=== PATIENT | male | born 1940 | race Caucasian/White ===

== ENCOUNTER 2025-04-24 18:41 | Inpatient (IN) | payer MEDICARE, OTHER, SELFPAY ==
[2025-04-24 12:59] VITALS: BP 166/73
--- NOTE | 2025-04-24 15:20 | ED.GENMED ---
History of Present Illness
General
Chief Complaint: Back Pain
Time Seen by Provider: 04/24/25 15:20
History of Present Illness
History of Present Illness:
FOCUSED PAST MEDICAL HISTORY
- Colon cancer
REVIEW OF OLD RECORDS
- No old records available for review in [facility]
Note:
CHIEF COMPLAINT(S)
Severe lower back pain.
HISTORY OF PRESENT ILLNESS
The patient is an 85-year-old male who experienced sudden onset of significant lower back pain this morning while getting dressed. He described the pain as sudden and sharp, occurring as he was putting on his pants. The patient reported having a
history of bursitis in the right hip, for which he received a cortisone injection a few years ago. He noted that the pain had been manageable over the past month, but it became suddenly severe today. The pain is predominantly located in the lower
back and worsens with movement. There is no abdominal pain reported. The patient also mentioned a history of colon cancer but stated that previous imaging, including X-rays taken today, showed degenerative changes without compression or signs of
injury. He mentioned the pain worsens with movement and he needs assistance sitting.
PAST MEDICAL HISTORY
- History of bursitis in the right hip.
- History of colon cancer with past imaging showing no metastatic lesions.
PHYSICAL EXAM
General: Alert, no acute distress noted. But appears somewhat uncomfortable when he attempts to move
Skin: Warm, dry.
Head: Normocephalic, atraumatic.
Neck: Supple, trachea midline.
Eye, Ears, Mouth, and Throat: Oral mucosa moist.
Cardiovascular: Normal peripheral perfusion, no edema.
Respiratory: Respirations are non-labored.
Gastrointestinal: Abdomen nondistended, no abdominal tenderness but exam very limited given body habitus
Back: Decreased active range of motion of the thoracolumbar spine, mild right CVA tenderness
Musculoskeletal: Normal range of motion and strength; hip rotation does not exacerbate pain.
Neurological: Alert and oriented to person, place, time, and situation, no focal neurological deficits observed.
Psychiatric: Cooperative, appropriate mood and affect.
PROBLEM LIST
Acute:
- Severe lower back pain
PLAN
Proceed with a computed tomography (CT) scan of the abdomen to rule out other potential etiologies such as issues with the aorta or kidney stones. Administered Percocet for pain management.
DIFFERENTIAL DIAGNOSIS
The Differential Diagnosis includes, in no particular order and is not limited to:
- Musculoskeletal strain or spasm
- Spinal degenerative changes
- Kidney stones
- Aortic aneurysm
- Metastatic disease
- Herniated disc
- Vertebral fracture
- Pyelonephritis
- Bursitis recurrence
- Abdominal aortic aneurysm
RADIOLOGY
- Lumbar x-ray shows degenerative changes
- I personally viewed CT imaging and I agree with radiologist interpretation that there is no acute abnormality
- I personally do not see any abnormality to the aorta on this noncontrast study
LABS
- White count and hemoglobin levels are both normal
SUMMARY OF ENCOUNTER
The patient, an 85-year-old male with a history of lower back pain, was seen in the emergency department for acute severe lower back pain that started this morning. The pain was sudden and sharp and occurred while the patient was getting dressed. A
CT scan of the abdomen was performed to assess potential causes, such as issues with the aorta or kidney stones. The evaluation did not reveal any acute pathology; it showed only degenerative changes consistent with aging. Pain management was
initiated with oxycodone and acetaminophen (Percocet), which was administered approximately an hour prior to this note. The patient lives alone and expressed concern about returning home due to managing daily activities in the presence of pain.
DISPOSITION
Admission to a rehabilitation or nursing facility is being considered due to the patients inability to safely return to his home and manage on his own.
ASSESSMENT
The most likely cause of the patients pain is musculoskeletal strain or spasm, given the acute onset and lack of findings on the CT scan suggesting other acute processes.
PLAN
Evaluate potential options for a rehabilitation facility or nursing care placement, considering the patient�s living situation and need for assistance due to acute pain and limited mobility. Continue with pain management and consider alternatives or
adjuncts as needed for pain control.
INDEPENDENT REVIEW OF LABS AND INTERPRETATION OF TESTS
My independent interpretation of the CT scan shows degenerative changes typical for the patients age but no acute findings to explain the severe pain such as issues with the aorta or kidney stones.
MEDICATION RECONCILIATION
- Administered oxycodone and acetaminophen (Percocet).
MEDICAL DECISION MAKING
- Number and Complexity of Problems Addressed: Chronic conditions affecting care, including a history of bursitis and colon cancer. Differential Diagnosis includes musculoskeletal strain or spasm, spinal degenerative changes, kidney stones,
herniated disc, bursitis recurrence, abdominal aortic aneurysm.
- Data:
Category 1: My independent interpretation of the CT scan revealed only degenerative changes without acute findings.
Category 2: None applicable.
Category 3: None applicable.
-Risk:
Prescription drug management was initiated with oxycodone and acetaminophen (Percocet) for pain management. Consideration of Admission/Observation: Escalation of care, including admission, was considered given the complexity and risk of the patients
presenting complaint, exam findings, and underlying comorbidities. The patient is considered for admission to a rehabilitation or nursing facility due to the inability to safely manage at home.
DIAGNOSIS
- Acute musculoskeletal back pain (ICD-10: M54.5)
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
UPDATE
- Suspect more of a musculoskeletal etiology however given the limited abdominal exam we will obtain CT imaging as well
- Gave Percocet for pain
- Patient reports ongoing significant pain with any attempted motion of the thoracolumbar spine
- Both patient and daughter expressed concerns about him going home and they do not feel it would be safe for him to be going back home by himself
- Added lab work
- Give IV narcotic analgesia as well
- Given patient's advanced age, held off on Flexeril
- I have also added a Lidoderm patch
Phy Exam
Physical Exam
Physical Exam:
See HPI
Course
Orders/Labs/Results
Orders:
Orders
04/24/25 13:00
Lumbar Spine Complete, 4 View [CR Lumbar Spine Comp Min 4 Vw*] Urgent
Comment:
Reason For Exam: back pain
04/24/25 Dinner
Cholesterol Lowering
At Your Request: Limited Participation
Does patient need a safe tray?: No
Cholesterol Lowering: Sodium, 2 Gram
04/24/25 15:27
CT Abd/pel Without Iv Or Oral Urgent
Comment:
Reason For Exam: R flank / back pain
Oxycodone/Acetaminophen [Percocet 5/325] 1 tablet PO NOW STA
04/24/25 17:17
Basic Metabolic Panel Urgent
Complete Blood Count/With Diff Urgent
04/24/25 17:25
HYDROmorphone [Dilaudid] 0.5 mg IV NOW STA
Ondansetron Injectable [Zofran] 4 mg IV NOW STA
04/24/25 17:26
Lidocaine [Lidocaine 4% Patch] 1 patch TOPICAL NOW STA
Apply Lidocaine patch(s) to:: right flank
04/24/25 17:45
Admit/Transfer Patient As Directed
Co-Sign Provider:
Level of Care: Inpatient admission
Assign to:: Medical/Surgical
Physician / Group: hospitalist
Diagnosis: lumbar back pain
Reason for Hospitalization: unknown cause of lumbar back pain
Expected length of stay greater than two midnights?: Yes
ELOS- Estimated Length of Stay in days: 3
I certify the patient meets the requirements for IP care: Yes
PRN Pain Medication Management As Directed
May give lesser potent ordered pain med per pt: Yes
preference::
Protocol:: Medication orders for pain may be administered in a
manner that supports deferring to patient preference
when the pt is:
- Requesting an ordered lesser potent pain medication.
Least to most potent pain medications are defined
as: acetaminophen < NSAID < tramadol < opioids
(morphine, oxycodone, hydromorphone).
- Requesting a lesser dose of the same medication IF
ORDERED.
- Requesting a less intrusive route of administration
if both routes are prescribed by the provider (PO <
IV).
04/24/25 17:46
Code Status As Directed
Resuscitation Status: Do not resuscitate
Reached after discussion with pt or family/Healthcare POA: Yes
DNR Bracelet Application ONCE
04/24/25 18:00
Atorvastatin [Lipitor] 40 mg PO QPM
04/24/25 19:56
Bisacodyl [Dulcolax] 10 mg RECTAL [id number] PRN
Docusate W/Senna [Senokot-S] 1 tablet PO BIDPRN PRN
HYDROmorphone [Dilaudid] 0.5 mg IV Q4HPRN PRN
Polyethylene Glycol Powder [Miralax] 17 grams PO DAILYPRN PRN
04/24/25 19:56
Lumbar W/O & With Contrast MR [MR Lumbar W/o & With Contrast] Routine
Comment:
Reason For Exam: back pain, hx cancer
Recent pill cam endoscopy?: No
Activity As Directed
Activity Level: As Tolerated
Vital Signs As Directed
Frequency: Per unit guidelines
Occupational Therapy Consult [Ot Eval And Treat] Routine
Pt Eval And Treat Routine
Activity Level: As Tolerated
DX Deep Vein Thrombosis Video Routine
04/24/25 20:00
Acetaminophen [Tylenol] 650 mg PO Q4HWA
Heparin 5,000 units SC Q12
04/25/25 06:00
Basic Metabolic Panel IN AM
Complete Blood Count/No Diff IN AM
04/25/25 08:00
Aspirin Chewable [Low Strength Aspirin] 81 mg PO DAILY
Cetirizine HCl [Zyrtec] 10 mg PO DAILY
Cetirizine HCl [Zyrtec] 10 mg PO DAILY
Cholecalciferol (Vitamin D3) [VITAMIN D3 (cholecalciferol)] 25 mcg PO DAILY
Cholecalciferol (Vitamin D3) [VITAMIN D3 (cholecalciferol)] 50 mcg PO DAILY
aspirin 81 mg PO DAILY
rosuvastatin 40 mg PO DAILY
04/26/25 06:00
Basic Metabolic Panel IN AM
Complete Blood Count/No Diff IN AM
04/27/25 06:00
Basic Metabolic Panel IN AM
Complete Blood Count/No Diff IN AM
04/28/25 06:00
Basic Metabolic Panel IN AM
Complete Blood Count/No Diff IN AM
04/29/25 06:00
Basic Metabolic Panel IN AM
Complete Blood Count/No Diff IN AM
04/30/25 06:00
Basic Metabolic Panel IN AM
Abnormal Lab Results
04/24/25
17:17
RBC 4.04 L 10^6/uL
(4.70-6.10)
MCV 102.2 H fL
(80.0-94.0)
MCH 34.7 H pg
(27.0-31.0)
MPV 11.1 H fL
(7.4-10.4)
Abs Immat Gran (auto) 0.1 H 10^3/uL
(0-0.05)
Absolute Lymphs (auto) 0.8 L 10^3/uL
(1.2-3.4)
Absolute Monos (auto) 1.1 H 10^3/uL
(0.1-0.6)
Immature Gran % 1.5 H %
(0-0.5)
Lymphocytes % 12.1 L %
(20.5-51.1)
Monocytes % 16.8 H %
(1.7-9.3)
BUN 23 H mg/dl
(9-20)
Glucose 120 H mg/dl
(70-99)
04/24/25 17:17
04/24/25 17:17
Vital Signs
Initial and Last Documented VS:
Initial Vital Signs
Temp Pulse Resp Pulse Ox
36.8 C 69 16 98
04/24/25 12:57 04/24/25 12:57 04/24/25 12:57 04/24/25 12:57
Last Documented Vital Signs
Temp Pulse Resp BP Pulse Ox
37.0 C 70 18 143/80 95
04/24/25 23:03 04/24/25 23:03 04/24/25 23:03 04/24/25 23:03 04/24/25 23:03
*Pulse Oximetry
SaO2: 98
Oxygen Mode of Delivery: Room air
Patient hypoxic: no
*Critical Care Note
Total Time (30-74mins, 75-104mins- exclusive of procedures): Not Applicable
ED Attending Note
-
Portions of this chart may have been created with voice recognition software.� Occasional wrong word or��sound alike� substitutions may have occurred due to the inherent limitations of voice recognition software.
Discharge Plan
Departure
Patient Disposition: Admit
Date of Disposition: 04/24/25
Time of Disposition: 17:03
Presentation/result/management discussed w/ accepting MD/DO: Hospitalist
Patient with high blood pressure during this ER visit?: Yes
Discharge Problem:
Intractable low back pain
Interventions
Interventions:
*General Assessment Last Done: 04/24/25 12:57
*Neglect/Abuse Screening Last Done: 04/24/25 12:57
*Risk Screen - Suicide (C-SSRS) Last Done: 04/24/25 12:57
*Nursing Disposition Last Done: 04/24/25 20:07
ED-Musculoskeletal Assessment Last Done: 12/28/25 15:15
Discharge Date and Time
Discharge Date/Time: 04/24/25 20:07
[2025-04-24] MEDS: PERCOCET 5/325 1 TABLET PO (15:40)
--- NOTE | 2025-04-24 17:16 | W.PN.UPDATE ---
Update Note
Progress Note Update
85-year-old male with history of colon cancer s/p resection and chemotherapy presenting to the ED today with the complaint of back pain. Back pain started this morning acutely while he was getting dressed, described as sudden and sharp. States he
has history of bursitis in the right hip which he previously received cortisone injections for. Pain has been manageable over the past month but recently worsened. Most prominent pain in the lower back that is worse with movement. States that he
had previous imaging related to his colon cancer without signs of metastases. AFVSS on arrival. X-ray of the lumbar spine demonstrated degenerative changes of L5-S1. CT A/P without contrast without acute findings. BMP and CBC with differential
pending. Was started on Percocet in the ED without relief.
AO x 4, appears in pain. Benign cardiopulmonary and abdominal exam. Euvolemic. Nontender to spine to palpation. Passive SLR positive. Skin warm and dry. No FND, strength intact though limited by discomfort
#Intractable back pain. Differentials include radiculitis versus soft tissue etiology versus possible metastases from previous colon cancer. Will transition to standing Tylenol 1 g every 6 hours with PRN IV Dilaudid for breakthrough pain. Order
MRI L-spine with and without contrast. PT/OT consult. Consider oral steroid versus epidural steroid injection
Diet -- Regular
DVT -- SQ Heparin
Code -- DNR
I will be admitting Andrés Wallace to [facility]. He is at high risk for worsening morbidity due to intractable back pain and will require readjustment of his analgesic regimen and further imaging to identify etiology. I have discussed this case
with the ED attending. I have reviewed the case with the resident and agree with all documentation unless otherwise specified.
See resident H&P for more detail once available
[2025-04-24 17:35] LABS: Hematocrit 41.3 % (39.0-52.0); Hemoglobin 14.0 g/dL (13.0-18.0); Mean Corp Hgb Conc. 33.9 g/dL (33.0-37.0); Mean Corpuscular Volume 102.2 fL (80.0-94.0); Nucleated Red Blood Cells % 0 % (-); Platelet Count 143 10^3/uL (130-400); Red Cell Dist. Width 13.9 % (11.5-14.5)
--- NOTE | 2025-04-24 17:50 | HPS.HSE ---
Family Physician
-
Family Physician: Chyna Del Castillo
Chief Complaint
-
lower back pain
History of Present Illness
85yoM PMH HLD, RUE neuropathy, colon cx, SCC and BCC, factor V leiden, TANYA, macular degeneration, allergic rhinitis presenting with acute onset of lower back pain.
Pt reports sitting on his ed this morning pulling his pants on when he all of the sudden had R sided back pain. Denies movement in a specific way caused the pain initially. He reports being able to lie down but having to call family and eventually
911 for help. He describes the pain as continued sharp, shooting pain that does not radiate. Pt reports pain with certain arm or back movements, exacerbated by any abdominal muscle tightening.
Hx hip bursitis s/p cortisone shots and RUE radicular symptoms of shooting down hand due to shoulder injury. Hx paresthesias from chemotherapy 10 years ago with no acute worsening or change. Denies numbness or tingling in feet, bowel or bladder
incontinence, fever, chills, nausea, vomiting, diarrhea, constipation, saddle anesthesia. No hx of back injury. Remote hx of what the pt reports as stage IV colon cancer, local lymph nodes s/p resection and chemotherapy 2014. Last seen oncologist at
[facility] 1mo, discharged from care as he has been cancer free for 10yrs. Daughter reports hx of leukopenia at baseline even without chemotherapy. RUE neuropahty and paresthesias ever since chemotherapy with temperature intolerance of hands only.
Medical History
Past Medical History
Past Medical History: Reports Cancer (colon, basal cell, squamous cell of skin) and Hypercholesterolemia
Additional Past Medical History:
Factor 5 leiden, arthritis, TANYA, macular degeneration, allergic rhinitis
Past Surgical History: Reports Appendectomy, Cholecystectomy, Tonsilectomy and Other
Additional Past Surgical History:
Mohs 1 wk ago on head
Catarct
Social History
Alcohol: Occasional
Personal:
Living: Alone
Employment: Retired
Family History
Family History: Other (COPD, heart disease, dementia)
Allergies / Home Medications
Allergies reflects when Allergies were last updated in [employer].
Home Medications with original date entered in [employer]
Allergy/Medication List:
Vit D3 50mcg Daily
Aspirin 81mg Daily
Cetirizine 10mg
FLuticasone 50mcg
Eye vitamins
Crestor 20mg
Review of Systems
-
History Source: Patient
A 12 point ROS was completed and negative except as noted: Yes
Physical Exam
Vital Signs
Vital Signs
Temp Pulse Resp BP Pulse Ox
98.3 F 69 16 166/73 98
04/24/25 12:57 04/24/25 12:57 04/24/25 12:57 04/24/25 12:59 04/24/25 15:22
Physical Exam
General: Well Developed, Well Nourished and No Apparent Distress
HEENT: NormoCephalic, Anicteric, Moist mucous membranes and Atraumatic (2 stitches on head from recent Mohs)
Respiratory: Clear and Non Labored Respirations
Cardiac: S1/S2 and Regular Rhythm
GI: Soft, Non Tender and Distended (at pt baseline)
Musculoskeletal: No Edema and Other (strength equal both sides, plantar flexion RLE limited by pain, straight leg test negative, no tenderness down palpation of spine)
Skin: Warm and Dry
Neuro: AO x 3, No Motor Deficits, Nonfocal/grossly intact, No Sensory Deficits and DTR's Intact & Symmetrical
Psych: Calm
Laboratory Results
-
04/24/25 17:17
Impression/Plan
-
IMPRESSION:
85yoM PMH HLD, RUE neuropathy, colon cx, SCC and BCC, factor V leiden, TANYA, macular degeneration, allergic rhinitis presenting with acute onset of lower back pain.
AFVSS. Remote hx of colon cx. No signs of cauda equina or cord compression without saddle anesthesia, incontinence, radiating pain, tenderness to palpation. Muscle strain vs herniated disc vs met seems unlikely but cannot r/o. CT demonstrates no
acute findings. Plan for MRI. Continue home medications. Tylenol standing with PRN dilaudid as needed. Pending MRI results, can consider steroid injection or PO course. PT/OT.
CT: No renal or ureteral calculus. No bladder calculus. No obstructive uropathy. 1 cm right renal cyst.
Fatty infiltration of liver. No bowel obstruction. The appendix is not identified with certainty. No secondary signs of appendicitis. No acute inflammatory changes in the abdomen or pelvis. Small likely benign dermal lesion to the right of midline
in the anterior pelvic region. Clinical correlation recommended. Lumbar degenerative changes, as described. No compression deformity.
Lumbar x ray: Degenerative changes, as described. No compression deformity.
#lower back pain
- MRI w w/o lumbar spine
- PT/OT
- Tylenol with PRN dilaudid. Bowel regimen PRN
#HLD
#allergic rhinitis
#factor V Leiden
- continue home medications
#remote hx of colon cx
- stable
DVT prophylaxis: SC heparin
Diet: cholesterol lowering
Code: DNR
[2025-04-24] MEDS: DILAUDID 0.5 MG IV (17:55)
[2025-04-24 17:56] LABS: Blood Urea Nitrogen 23 mg/dl (9-20); Calcium 9.6 mg/dl (8.4-10.2); Carbon Dioxide 25 mmol/L (22-30); Chloride 106 mmol/L (98-107); Glucose 120 mg/dl (70-99); Potassium 4.7 mmol/L (3.5-5.1); Sodium 138 mmol/L (135-145); eGFR > 60.00
[2025-04-24] MEDS: LIDOCAINE 4% PATCH 1 PATCH TOPICAL (17:56)
[2025-04-24] MEDS: ZOFRAN 4 MG IV (17:56)
[2025-04-24 20:06] VITALS: BP 163/90; BMI 34.1
[2025-04-24] MEDS: HEPARIN 5000 UNITS SC (20:35)
[2025-04-24] MEDS: TYLENOL 650 MG PO (20:35)
[2025-04-24 23:03] VITALS: BP 143/80
--- NOTE | 2025-04-24 23:56 | PTCARENOTE ---
Receive pt from ER. Pt alert oriented X3, calm and pleasant, in no distress. Pt assist X1 from the stretcher in the room to bed. Pt oriented to the room, call mullins within reach. Pt states that his pain is manageable (2/10). VSS (T=99.2, HR=76,
RR=20, NH=174/90, SpO2=97% on RA). Pt admits to 4 or more drinks per day. DOOR HANGER made aware. Pt is on MSAS for alcohol withdrawal symptoms. Will continue to monitor the pt.
[2025-04-25] MEDS: TYLENOL 650 MG PO ×5 (00:12→19:47)
[2025-04-25] MEDS: TYLENOL PO ×2 (05:28→23:07)
--- NOTE | 2025-04-25 07:28 | W.PN.HOSP.TC ---
Addendum entered and electronically signed by Yong Huddleston MD 04/25/25 15:29:
I personally reviewed and evaluated this patient with the resident. I agree with above unless if otherwise stated below.
I personally reviewed labs and imaging leadership development consultant notes case management note
Sitting in bedside chair. Was able to work with physical therapy. They did recommend home with caregivers along with a walker. Prescription placed in chart.
Back pain intermittent depending on movements. MRI L-spine pending. If no significant findings will plan to discharge home with outpatient orthopedic follow-up.
Original Note:
Today's Communication/Plan
-
Pending MRI, dc home with walker and home PT
Assessment / Plan
Assessment / Plan
85yoM PMH HLD, RUE neuropathy, colon cx, SCC and BCC, factor V leiden, TANYA, macular degeneration, allergic rhinitis presenting with acute onset of lower back pain.
AFVSS. Remote hx of colon cx. No signs of cauda equina or cord compression without saddle anesthesia, incontinence, radiating pain, tenderness to palpation. Muscle strain vs herniated disc vs met seems unlikely but cannot r/o. CT demonstrates no
acute findings. Plan for MRI. Continue home medications. Tylenol standing with PRN dilaudid as needed. Pending MRI results, can consider steroid injection or PO course. PT/OT.
Today, pt AFVSS. Able to ambulate with PT with walker. Plan for MRI today. Pending results, dc with home PT and walker.
CT: No renal or ureteral calculus. No bladder calculus. No obstructive uropathy. 1 cm right renal cyst.
Fatty infiltration of liver. No bowel obstruction. The appendix is not identified with certainty. No secondary signs of appendicitis. No acute inflammatory changes in the abdomen or pelvis. Small likely benign dermal lesion to the right of midline
in the anterior pelvic region. Clinical correlation recommended. Lumbar degenerative changes, as described. No compression deformity.
Lumbar x ray: Degenerative changes, as described. No compression deformity.
#lower back pain
- MRI w w/o lumbar spine
- PT/OT
- Tylenol with PRN dilaudid. Bowel regimen PRN
#HLD
#allergic rhinitis
#factor V Leiden
- continue home medications
#remote hx of colon cx
- stable
DVT prophylaxis: SC heparin
Diet: cholesterol lowering
Code: DNR
Anticipated Discharge: Today
Subjective/Interval History
-
Date of Service: April 25, 2025
Pt reports intermittent back pain that is worse with only certain movements. He reports being able to move around reasonably with walker when PT was there. Denies saddle anesthesia, incontinence, paresthesias or weakness.
Objective Data
-
Labs:
Laboratory Results
04/25/25
06:00
WBC Pending
Hgb Pending
Hct Pending
Plt Count Pending
Sodium Pending
Potassium Pending
Chloride Pending
Carbon Dioxide Pending
BUN Pending
Creatinine Pending
Glucose Pending
Calcium Pending
Vital Signs:
Vital Signs
Temp Pulse Resp BP Pulse Ox
98.6 F 70 18 143/80 95
04/24/25 23:03 04/24/25 23:03 04/24/25 23:03 04/24/25 23:03 04/24/25 23:03
I&O
04/24/25 04/25/25 04/26/25
06:59 06:59 06:59
Intake Total 480 / 480
Output Total 450 / 450
Balance
Review of Systems
-
History Source: Patient
All other systems: Reviewed and negative
[2025-04-25 07:45] VITALS: BP 140/73
[2025-04-25] MEDS: CRESTOR 40 MG PO (08:07)
[2025-04-25] MEDS: VITAMIN D3 (cholecalciferol) 25 MCG PO (08:07)
[2025-04-25] MEDS: ZYRTEC 10 MG PO (08:07)
[2025-04-25] MEDS: LOW STRENGTH ASPIRIN 81 MG PO (08:07)
[2025-04-25] MEDS: HEPARIN 5000 UNITS SC ×2 (08:07→19:47)
[2025-04-25 09:02] LABS: Hematocrit 37.8 % (39.0-52.0); Hemoglobin 12.8 g/dL (13.0-18.0); Mean Corp Hgb Conc. 33.9 g/dL (33.0-37.0); Mean Corpuscular Volume 102.4 fL (80.0-94.0); Platelet Count 138 10^3/uL (130-400); Red Cell Dist. Width 14.0 % (11.5-14.5)
[2025-04-25 09:22] LABS: Blood Urea Nitrogen 26 mg/dl (9-20); Calcium 9.1 mg/dl (8.4-10.2); Carbon Dioxide 25 mmol/L (22-30); Chloride 105 mmol/L (98-107); Estimated Creatinine Clearance 88 ml/min; Glucose 120 mg/dl (70-99); Potassium 4.5 mmol/L (3.5-5.1); Sodium 138 mmol/L (135-145); eGFR > 60.00
[2025-04-25 11:16] VITALS: BP 151/80; PULSE 64; O2SAT 97
[2025-04-25 11:18] VITALS: BP 151/80; PULSE 64; O2SAT 94
--- NOTE | 2025-04-25 14:42 | CM ---
Patient seen bedside w/ daughter, Reyna and grandson. Initial assessment completed. Patient is a 85yoM PMH HLD, RUE neuropathy, colon cx, SCC and BCC, factor V leiden, TANYA, macular degeneration, allergic rhinitis presenting with acute onset of lower
back pain.
Patient resides alone in an apartment at [facility] in independent living. No steps, elevator access. Patient is independent w/ ambulation, no device required. Independent w/ ADLs and personal care. No SNF hx. Patient has hx w/ PT at [facility].
Address, points of contact and insurance verified
PCP: Chyna Del Castillo
Pharmacy: [facility]
Therapy assessed patient, recommending home PT/OT and RW at discharge. Rx for RW on chart
Discussed potential d/c today w/ patient and Reyna Orellana w/ concerns about patient's lack of improvement and awaiting MRI. Reyna discussing potential skilled rehab need if patient is able to get 3 night inpatient stay. Reyna has concern w/ patient not
being independent and the fact that he resides alone. CM discussed w/ Reyna that therapy isn't recommending skilled rehab and most likely patient will not be in hospital for 3 days as hospitalist discussed potential of d/c today. PA to follow up w/
Reyna to discuss potential d/c today pending back MRI
Plan: Home w/ HH. PT will issue RW
[2025-04-25 15:30] VITALS: BP 138/71
[2025-04-25 23:16] VITALS: BP 147/74
[2025-04-26] MEDS: TYLENOL PO (04:48)
[2025-04-26 07:30] VITALS: BP 145/67
--- NOTE | 2025-04-26 07:38 | W.PN.HOSP.TC ---
Addendum entered and electronically signed by Yong Huddleston MD 04/26/25 16:51:
I personally reviewed and evaluated this patient with the resident. I agree with above unless if otherwise stated below.
I personally reviewed labs and imaging process consultant notes case management note
Lumbar MRI demonstrated severe spinal stenosis. Discussed case with neurosurgery. Outpatient follow-up.
PT recommended home health.
Will discharge home with 3 days worth of oxycodone.
Original Note:
Today's Communication/Plan
-
Follow up neurosurgery outpt
Assessment / Plan
Assessment / Plan
85yoM PMH HLD, RUE neuropathy, colon cx, SCC and BCC, factor V leiden, TANYA, macular degeneration, allergic rhinitis presenting with acute onset of lower back pain.
AFVSS. Remote hx of colon cx. No signs of cauda equina or cord compression without saddle anesthesia, incontinence, radiating pain, tenderness to palpation. Muscle strain vs herniated disc vs met seems unlikely but cannot r/o. CT demonstrates no
acute findings. Plan for MRI. Continue home medications. Tylenol standing with PRN dilaudid as needed. Pending MRI results, can consider steroid injection or PO course. PT/OT.
Today, pt AFVSS. Able to ambulate with PT with walker. MRI yesterday demonstrated no acute changes. Dc with home PT and walker. TT neurosurgery MRI results; recommend outpt f/u, does not need inpt intervention currently.
CT: No renal or ureteral calculus. No bladder calculus. No obstructive uropathy. 1 cm right renal cyst.
Fatty infiltration of liver. No bowel obstruction. The appendix is not identified with certainty. No secondary signs of appendicitis. No acute inflammatory changes in the abdomen or pelvis. Small likely benign dermal lesion to the right of midline
in the anterior pelvic region. Clinical correlation recommended. Lumbar degenerative changes, as described. No compression deformity.
Lumbar x ray: Degenerative changes, as described. No compression deformity.
MRI:
1. SEVERE CENTRAL CANAL STENOSIS at L4/L5 secondary to 4 mm grade 1 anterolisthesis, severe bilateral facet joint arthrosis, and a moderate-sized diffuse disc bulge.
2. Moderate central canal stenosis at L2/L3 secondary to a large diffuse disc bulge.
3. Mild to moderate central canal stenosis at L3/L4.
4. Severe right lateral recess stenosis at L5/S1 secondary to a moderate-sized right central disc herniation and 5.5 mm retrolisthesis.
5. 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
#lower back pain
- MRI w w/o lumbar spine. F/u outpt w neurosurgery
- PT/OT
- Tylenol with PRN dilaudid. Bowel regimen PRN
#HLD
#allergic rhinitis
#factor V Leiden
- continue home medications
#remote hx of colon cx
- stable
DVT prophylaxis: SC heparin
Diet: cholesterol lowering
Code: DNR
Anticipated Discharge: Today
Subjective/Interval History
-
Date of Service: April 26, 2025
Pt reports continued R lower back pain but able to get to chair safely, feeling ok this morning.
Objective Data
-
Labs:
Laboratory Results
04/26/25
06:00
WBC Pending
Hgb Pending
Hct Pending
Plt Count Pending
Sodium Pending
Potassium Pending
Chloride Pending
Carbon Dioxide Pending
BUN Pending
Creatinine Pending
Glucose Pending
Calcium Pending
Vital Signs:
Vital Signs
Temp Pulse Resp BP Pulse Ox
98.5 F 62 21 147/74 96
04/25/25 23:16 04/25/25 23:16 04/25/25 23:16 04/25/25 23:16 04/25/25 23:16
I&O
04/25/25 04/26/25 04/27/25
06:59 06:59 06:59
Intake Total 480 / 480 420 / 420
Output Total 450 / 450
Balance 30 30 420 / 420
Physical Exam
-
General: Well Developed, Well Nourished and No Apparent Distress
HEENT: Normocephalic, Atraumatic and Moist Mucous Membranes
Respiratory: Clear to Auscultation and Non Labored Respirations
Cardiac: Regular Rhythm and S1/S2
GI: Soft, Nontender and Nondistended
Musculoskeletal: No Edema and Other (no tenderness to palpation down spine)
Skin: Warm and Dry
Neuro: AO x 3, No Motor Deficits, Nonfocal/Grossly Intact and No Sensory Deficits
[2025-04-26] MEDS: LOW STRENGTH ASPIRIN 81 MG PO (07:52)
[2025-04-26] MEDS: HEPARIN 5000 UNITS SC (07:52)
[2025-04-26] MEDS: CRESTOR 40 MG PO (07:52)
[2025-04-26] MEDS: ZYRTEC 10 MG PO (07:53)
[2025-04-26] MEDS: VITAMIN D3 (cholecalciferol) 25 MCG PO (07:53)
[2025-04-26] MEDS: TYLENOL 650 MG PO ×2 (07:53→11:47)
[2025-04-26 10:27] LABS: Hematocrit 37.1 % (39.0-52.0); Hemoglobin 12.8 g/dL (13.0-18.0); Mean Corp Hgb Conc. 34.5 g/dL (33.0-37.0); Mean Corpuscular Volume 103.3 fL (80.0-94.0); Platelet Count 142 10^3/uL (130-400); Red Cell Dist. Width 13.9 % (11.5-14.5)
[2025-04-26 10:48] LABS: Blood Urea Nitrogen 23 mg/dl (9-20); Calcium 9.3 mg/dl (8.4-10.2); Carbon Dioxide 26 mmol/L (22-30); Chloride 102 mmol/L (98-107); Estimated Creatinine Clearance 77 ml/min; Glucose 175 mg/dl (70-99); Potassium 4.1 mmol/L (3.5-5.1); Sodium 135 mmol/L (135-145); eGFR > 60.00
[2025-04-26 11:57] VITALS: BP 143/67
--- NOTE | 2025-04-26 13:44 | CM ---
Patient for discharge home today
IMM reviewed
Script for RW given to PT
patient has transportation home.
Patient for outpatient PT, needs script TT to MD.
Plan: home with outpatient PT at [facility].
--- NOTE | 2025-04-26 15:15 | W.DCSUMMARY ---
Discharge Summary
Discharge Data
Date of Admission: 04/24/25
Date of Discharge: 04/26/25
-
Pending Results: No
Hospital Course
85yoM PMH HLD, RUE neuropathy, colon cx, SCC and BCC, factor V leiden, TANYA, macular degeneration, allergic rhinitis presenting with acute onset of lower back pain after sitting on the edge of his bed.
AFVSS. Remote hx of colon cx. No signs of cauda equina or cord compression without saddle anesthesia, incontinence, radiating pain, tenderness to palpation. Muscle strain vs herniated disc vs met seems unlikely but cannot r/o. CT demonstrates no
acute findings. Continue home medications. Tylenol standing with PRN dilaudid as needed. PT/OT. No doses of dilaudid used during admission.
The next day, pt able to ambulate with PT with walker. MRI demonstrated no acute changes. Dc with home PT and walker. TT neurosurgery MRI results; recommend outpt f/u, does not need inpt intervention currently.
IMAGING
CT: No renal or ureteral calculus. No bladder calculus. No obstructive uropathy. 1 cm right renal cyst.
Fatty infiltration of liver. No bowel obstruction. The appendix is not identified with certainty. No secondary signs of appendicitis. No acute inflammatory changes in the abdomen or pelvis. Small likely benign dermal lesion to the right of midline
in the anterior pelvic region. Clinical correlation recommended. Lumbar degenerative changes, as described. No compression deformity.
Lumbar x ray: Degenerative changes, as described. No compression deformity.
MRI:
1. SEVERE CENTRAL CANAL STENOSIS at L4/L5 secondary to 4 mm grade 1 anterolisthesis, severe bilateral facet joint arthrosis, and a moderate-sized diffuse disc bulge.
2. Moderate central canal stenosis at L2/L3 secondary to a large diffuse disc bulge.
3. Mild to moderate central canal stenosis at L3/L4.
4. Severe right lateral recess stenosis at L5/S1 secondary to a moderate-sized right central disc herniation and 5.5 mm retrolisthesis.
5. 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
Discharge Plan
-
Patient Disposition: Home (Routine Discharge)
Discharge Diagnosis/Procedures: intractable lower back pain
severe central canal stenosis L4/5
Condition: Fair
Diet: As tolerated
Activity: As tolerated
Driving Restrictions: Not until seen by your Dr
Bathing Restrictions: None
Referrals:
Tan Encinas DO [Active, Neurosurgery]
Chyna Del Castillo DO [Family Provider, Family Practice]
Prescriptions:
New
oxycodone 5 mg tablet
5 mg PO Q8H PRN (Reason: Pain) 3 Days Qty: 20 0RF
Continued
cetirizine [Zyrtec] 10 mg Tablet
10 mg PO DAILY
acetaminophen 500 mg Tablet
1,000 mg PO BIDPRN PRN (Reason: mild pain)
sildenafil 100 mg tablet
100 mg PO DAILYPRN PRN (Reason: ED)
aspirin 81 mg Tablet
81 mg PO DAILY
fluticasone propionate 50 mcg/actuation spray,suspension
1 spray INTRANASAL DAILY
rosuvastatin 40 mg tablet
40 mg PO DAILY
cholecalciferol (vitamin D3) 25 mcg (1,000 unit) Tablet
25 mcg PO DAILY
PreserVision AREDS-2 250-90-40-1 mg Capsule
1 tab PO BID
Discharge Orders:
Discharge Patient (As Directed); Ordered 04/26/25
Ordered By: Monet Peacock
Discharge Date and Time
Discharge Date/Time: 04/26/25 14:25
Print Language: AUSTRIAN
== END 2025-04-26 14:25 | disposition home or self-care (01) | DRG 552 ==
LOC: 4 EAST ACU 18:41
PROVIDERS: ADMITTING PHYSICIAN Internal Medicine; ATTENDING PHYSICIAN Hospitalist; EMERGENCY PHYSICIAN Emergency Medicine; FAMILY PHYSICIAN Family Medicine
DX: M48.061 Spinal stenosis, lumbar region without neurogenic claudication (principal); D68.51 Activated protein C resistance; E78.00 Pure hypercholesterolemia, unspecified; J30.9 Allergic rhinitis, unspecified; G62.9 Polyneuropathy, unspecified; M47.26 Other spondylosis with radiculopathy, lumbar region; G47.33 Obstructive sleep apnea (adult) (pediatric); H35.30 Unspecified macular degeneration; Z60.2 Problems related to living alone; Z66 Do not resuscitate; Z92.21 Personal history of antineoplastic chemotherapy; Z90.49 Acquired absence of other specified parts of digestive tract; Z85.038 Personal history of other malignant neoplasm of large intestine; Z85.828 Personal history of other malignant neoplasm of skin; Z79.82 Long term (current) use of aspirin
CPT/HCPCS: 72110; 72158; 74176; 80048; 85025; 85027; 97116; 97162; 97166; 97535; 99285; A9575